=== PATIENT | male | born 1985 | race Caucasian/White ===

== ENCOUNTER 2017-03-18 11:10 | Emergency (ER) | payer SELFPAY ==
[2017-03-18] MEDS ORDERED: Diazepam 5 MG TAB ONE (11:22)
[2017-03-18] MEDS ORDERED: HYDROcodone/Acetaminophen 10/325 mg Tablet ONE (11:22)
[2017-03-18] MEDS ORDERED: Ondansetron HCl/PF 4 MG/2 ML Vial ONE (11:23)
[2017-03-18] MEDS ORDERED: Ketorolac Tromethamine 30 MG/ML VIAL ONE (11:23)
--- NOTE | 2017-03-18 12:28 | CT ---
LUMBAR SPINE CT WITHOUT IV CONTRAST: Date: 03/18/17 HISTORY: Sudden severe low back pain. FINDINGS: There is no evidence for acute fracture or dislocation. At L1-L2 and L2-L3, there is no significant canal or foraminal stenosis. At L3-L4, there is central focal protrusion with moderate central canal stenosis without significant foraminal stenosis. At L4-L5, there is some central protrusion with moderate central canal and lateral recess stenosis wi thout foraminal stenosis. At L5-S1, no central canal or lateral recess stenosis. Mild bilateral foraminal stenosis. IMPRESSION: Mild spondylosis. No acute fracture or dislocation. Evidence for central canal and lateral recess agustin nosis at L3-L4 and L4-L5. If the patient has any radicular symptoms, consider nonemergent follow-up M RI study for further assessment. POS: JOANN
== END 2017-03-18 13:12 | disposition home or self-care (01) ==
LOC: MADERS 11:10
DX: M54.5 Low back pain (principal); F17.210 Nicotine dependence, cigarettes, uncomplicated
CPT/HCPCS: 72131; 96374; 96375; J1885; J2405